=== PATIENT | male | born 1950 | race Caucasian/White ===

== ENCOUNTER 2021-10-02 17:29 | Observation (INO) | payer OTHER ==
[~2021-10-02] VITALS: Ht 170.2 cm; Wt 70.0 kg
--- NOTE | 2021-10-02 17:29 | NUR ---
PT ARRIVES VIA EMS IN NO DISTRESS
--- NOTE | 2021-10-02 18:02 | NUR ---
PATIENT LYING IN BED IN NO ACUTE DISTRESS. VSS. ALERT AND ORIENTED.
[2021-10-02 18:16] LABS: HEMATOCRIT 48.5 % (39.0-50.0); HEMOGLOBIN 16.1 g/dl (14.0-18.0); IMMATURE GRANULOCYTES 0.1 % (0.0-5.0); MEAN CELL VOLUME 92.2 fL CALC (80.0-100.0); MEAN CORPUSCULAR HGB 30.6 pG CALC (26.0-32.0); MEAN CORPUSCULAR HGB CONC 33.2 g/dL CAL (32.0-36.0); NEUT# 6.11 thou/uL (1.82-7.42); RED BLOOD COUNT 5.26 mill/uL (4.70-6.10)
[2021-10-02 18:29] LABS: ALBUMIN 3.8 g/dL (3.2-5.0); ALKALINE PHOSPHATASE 75 u/l (38-126); ANION GAP 10 (6-22 (CALC)); BILIRUBIN, TOTAL 0.7 mg/dL (0.0-1.4); BUN 17 mg/dL (8-23); BUN/CREATININE RATIO 16 (12-20 (CALC)); CARBON DIOXIDE 28 mmol/l (22-30); CHLORIDE 102 mmol/l (95-108); CREATININE 1.1 mg/dL (0.7-1.3); GFR > 60 ML/MIN (>=60 (CALC)); GFR FOR AFR.AMER. > 60 ML/MIN (>=60 (CALC)); POTASSIUM 3.7 mmol/l (3.5-5.1); SGOT/AST 21 u/l (19-48); SODIUM 137 mmol/l (137-146); TOTAL PROTEIN 6.7 g/dL (6.3-8.2)
--- NOTE | 2021-10-02 19:21 | NUR ---
PATIENT LYING IN BED IN NO ACUTE DISTRESS. GALILEO IN ROOM AT BEDSIDE. VSS.
--- NOTE | 2021-10-02 19:35 | NUR ---
PT RESTING OFFERS NO COMPLAINTS STATES THAT HE IS TIRED BUT OTHERWISE FEELS FINE, GUARD REMAINS AT BEDSIDE.
--- NOTE | 2021-10-02 20:44 | NUR ---
PT RESTING AWARE OF HOLD IN ER TONIGHT GUARD AWARE WELL DINNER PROVIDED AND PT TOLERATED WELL, NO NEW COMPLAINTS OFFERED, WILL CONTINUE TO MONITOR.
[2021-10-02 21:00] VITALS: BP 107/55
--- NOTE | 2021-10-02 21:30 | NUR ---
PT ADMISSION FOR ISU HOLD IN ER, PT ALERT AND ORIENTED, CAME TO ER VIA EMS FOR C/O SOB AND CHEST DISCOMFORT, PT FOUND TO BE IN SVT RATE 180'S (PER REPORT) WAS GFIVEN ADENOSINE EN ROUTE TO ER AND CONVERTED WITH NOFURTHER EPISODES OF SVT. PT ALERT AND ORIENTED, VS STABLE SOME MILD BRADYCARDIA NOTED AT TIMES, B/P WNL AND PT AFEBRILE, IV SITE INTACT NO FURTHER COMPLAINTS, GUARD AT SIDE AND PT SHACKLED TO BED, CALL ROJAS WITHIN REACH, WILL CONTINUE TO MONITOR.
[2021-10-02 22:00] VITALS: BP 101/59
--- NOTE | 2021-10-02 22:30 | NUR ---
PT PROVIDED WITH VERGETABLE TRAY, (PT IS VEGETARIAN) ATE 100% OF MEAL, AND TOLERATED WITHOUT INCIDENT. GUARD REMAINS AT BEDSIDE NO TELE CHANGES NOTED, CALL ROJAS WITHIN REACH.
[2021-10-02 23:00] VITALS: BP 98/56
--- NOTE | 2021-10-02 23:46 | NUR ---
PT PLACED ON HOSPITAL BED FOR COMFORT, CALL ROJAS WITHIN REACH
[2021-10-03] VITALS: BP 94/56
--- NOTE | 2021-10-03 01:40 | NUR ---
UPDATED REGARDING LAB RESULTS CALLED FOR PT TO BE TRANSFERRED TO [facility] FOR NON STEMI.
[2021-10-03 02:35] LABS: INTERNATIONAL NORMALIZED RATIO 3.1 RATIO (0.7-1.3); PROTHROMBIN TIME 30.5 SECONDS (9.0-12.5)
--- NOTE | 2021-10-03 02:43 | NUR ---
CONSENT OBTAINED FROM PT FOR TRANSFER TO [facility], HEPARIN GTT INFUSING ORDERED. CALL ROJAS WITHIN REACH, GUARD REMAINS AT BEDSIDE, IS ACCEPTING PHYSICIAN AT [facility], AWAITING BED ASSIGNMENT.
--- NOTE | 2021-10-03 03:16 | NUR ---
EKG COMPLETED PER DR.NICOSIA GARCIA.
[2021-10-03 03:30] VITALS: BP 109/57
--- NOTE | 2021-10-03 04:38 | NUR ---
PT REMINDED FREQUENTLY TO CALL FOR ASSISTANCE OT GO TO BATHROOM AND LEAVE MONTIROING EQUIPMENT IN PLACE, PT CONTINUES TO NOT CALL STAFF EVEN AFTER EDUCATED REGARDING THE IMPORTANCE OF THE MONITORING EQUIPMENT. FOUND WITH B/P CUFF ON THE FLOOR MULTIPLE TIMES THIS SHIFT. WILL CONTINUE TO MONITOR.
--- NOTE | 2021-10-03 05:52 | NUR ---
ADVISED OF WAIT TIME FOR TRANSPORT.
[2021-10-03 05:54] LABS: MEAN CELL VOLUME 93.6 fL CALC (80.0-100.0); MEAN CORPUSCULAR HGB CONC 33.1 g/dL CAL (32.0-36.0); RED BLOOD COUNT 4.52 mill/uL (4.70-6.10)
[2021-10-03 05:57] LABS: HEMATOCRIT 42.3 % (39.0-50.0)
[2021-10-03 06:36] LABS: ANION GAP 9 (6-22 (CALC)); BUN 18 mg/dL (8-23); BUN/CREATININE RATIO 21 (12-20 (CALC)); CARBON DIOXIDE 25 mmol/l (22-30); CHLORIDE 106 mmol/l (95-108); CREATININE 0.9 mg/dL (0.7-1.3); GFR > 60 ML/MIN (>=60 (CALC)); GFR FOR AFR.AMER. > 60 ML/MIN (>=60 (CALC)); MAGNESIUM 1.9 mg/dL (1.6-2.3); POTASSIUM 3.9 mmol/l (3.5-5.1); SODIUM 136 mmol/l (137-146)
--- NOTE | 2021-10-03 07:02 | NUR ---
PT UP TO BATHROOM WITH STEADY GAIT. VSS. IV HEPARIN INFUSING
--- NOTE | 2021-10-03 08:00 | NUR ---
PT SITTING UP IN BED WITH NO COMPLAINTS. CONTINUES TO DENY CP OR SOB, HR 72.
--- NOTE | 2021-10-03 09:05 | NUR ---
PT CONSUMED 100% OF BREAKFAST TRAY, UPDATED ON WAIT TIME FOR TRANSPORT. SKIN PWD, NO DISTRESS
--- NOTE | 2021-10-03 10:00 | NUR ---
REPORT TO NIA GEORGE
--- NOTE | 2021-10-03 11:13 | NUR ---
BEDSIDE REPORT TO [facility] ATTENDANTS. PT [place] [facility] [place]
--- NOTE | 2021-10-03 11:15 | NUR ---
PT LEAVES ED VIA EMS STRETCHER IN STABLE CONDITION.
--- NOTE | 2021-10-03 11:33 | NUR ---
SBAR REPORT CALLED TO NIA URIBE AT [facility].
== END 2021-10-03 11:15 | disposition short-term general hospital (02) | DRG 281 ==
LOC: ED 17:29 → EDBD 17:29 → ED-I 17:53 → ED 17:53 → ED-I 18:20 → ED 20:09 → ED-I 20:10
PROVIDERS: Emergency Medicine; Family Medicine; ADMIT Hospitalist; ATTEND Hospitalist
DX: I21.4 Non-ST elevation (NSTEMI) myocardial infarction (principal); I47.1 Supraventricular tachycardia; F41.9 Anxiety disorder, unspecified; F32.A Depression, unspecified; Z20.822 Contact with and (suspected) exposure to COVID-19
CPT/HCPCS: J1644; J1650